=== PATIENT | female | born 1975 | race Caucasian/White ===

== ENCOUNTER → 2021-09-07 12:26 | Outpatient (CLI) | payer OTHER, SELFPAY ==
--- NOTE | ~2021-09-07 | MM_ITS ---
EXAMINATION: MM screening [facility] BI w blas HISTORY: Screening mammogram TECHNIQUE: Craniocaudal and mediolateral oblique 3-D tomosynthesis images were obtained and synthetic 2-D images were generated. CAD analysis was submitted and interpreted. COMPARISON: 07/08/2018, 06/19/2018 BREAST PARENCHYMAL COMPOSITION: There are scattered areas of fibroglandular density. FINDINGS: There is no evidence of suspicious mass, calcification, or architectural distortion to sugg est malignancy in either breast. There has been no suspicious interval change. IMPRESSION: 1. No mammographic evidence of malignancy. 2. Recommend routine screening mammography in one year. BI-RADS Category 1: Negative Reviewed, dictated and finalized at location A. Y MEDIA OPERATOR
== END ==
PROVIDERS: PCP Nurse Practitioner Adult Health; Visit Provider Nurse Practitioner Adult Health
DX: Z12.31 Encounter for screening mammogram for malignant neoplasm of breast (principal)
CPT/HCPCS: 77063; 77067

== ENCOUNTER → 2022-09-11 10:05 | Outpatient (CLI) | payer OTHER, SELFPAY ==
--- NOTE | ~2022-09-11 | MM_ITS ---
EXAMINATION: MM screening [facility] BI w blas HISTORY: Screening mammogram TECHNIQUE: Craniocaudal and mediolateral oblique 3-D tomosynthesis images were obtained and synthetic 2-D images were generated. CAD analysis was submitted and interpreted. COMPARISON: September 07, 2021 bilateral screening mammogram 07/08/2018 diagnostic right mammogram 06/19/2018 bilateral screening mammogram BREAST PARENCHYMAL COMPOSITION: There are scattered areas of fibroglandular density. FINDINGS: Stable mild fibroglandular asymmetry since 06/19/2018. There is no evidence of suspicious m ass, calcification, or architectural distortion to suggest malignancy in either breast. There has bee n no suspicious interval change. IMPRESSION: 1. No mammographic evidence of malignancy. 2. Recommend routine screening mammography in one year. BI-RADS Category 1: Negative Reviewed, dictated and finalized at location A. 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
== END ==
PROVIDERS: PCP Nurse Practitioner Adult Health; Visit Provider Nurse Practitioner Adult Health
DX: Z12.31 Encounter for screening mammogram for malignant neoplasm of breast (principal)
CPT/HCPCS: 77063; 77067

== ENCOUNTER → 2023-09-17 10:03 | Outpatient (CLI) | payer OTHER, SELFPAY ==
--- NOTE | ~2023-09-17 | MM_ITS ---
EXAMINATION: MM screening [facility] BI w blas HISTORY: Screening TECHNIQUE: Craniocaudal and mediolateral oblique 3-D tomosynthesis images were obtained and synthetic 2-D images were generated. CAD analysis was submitted and interpreted. COMPARISON: No prior mammogram is available for comparison at this institution. BREAST PARENCHYMAL COMPOSITION: Not dense: There are scattered areas of fibroglandular density. FINDINGS: There are scattered bilateral breast asymmetries, more so on the right. Left breast asymmet diana are centered in the upper outer quadrant of the left breast. There are no suspicious calcificati ons. IMPRESSION: 1. Bilateral breast asymmetries. 2. Additional mammographic views and possible breast ultrasound are recommended. BI-RADS Category 0: Incomplete: Needs additional imaging evaluation. Reviewed, dictated and finalized at location A. ING CLEANER IMPRESSION: 1. Bilateral breast asymmetries. 2. Additional mammographic views and possible breast ultrasound are recommended . BI-RADS Category 0: Incomplete: Needs additional imaging evaluation.
== END ==
PROVIDERS: PCP Family Medicine; Visit Provider Family Medicine
DX: Z12.31 Encounter for screening mammogram for malignant neoplasm of breast (principal); R92.8 Other abnormal and inconclusive findings on diagnostic imaging of breast
CPT/HCPCS: 77063; 77067

== ENCOUNTER 2023-10-12 07:49 | Outpatient (CLI) | payer OTHER, SELFPAY ==
--- NOTE | ~2023-10-12 | US_ITS ---
US breast BI complete DATE: 10/12/2023 11:04 INDICATION: Bilateral mammographic asymmetries reported on September 17, 2023 screening mammogram TECHNIQUE: Complete bilateral breast ultrasound examination including all 4 quadrants and subareolar areas COMPARISON: September 17, 2023 bilateral screening mammogram October 12, 2023 diagnostic right mammogram FINDINGS: No suspicious mass or shadowing of either breast is detected. Right breast: 1:00 3 cm from nipple: 5 mm simple cyst 10:00 5 cm from nipple: 2 x 3.7 mm probable minimally septated cyst 10:00 5 cm from nipple: 3 mm circumscribed probable septated cyst 11:00 5 cm from nipple: 2.7 x 4.7 mm simple cyst Left breast: 3:00 8 cm from nipple: Approximately 4 x 9 mm probable intramammary lymph node IMPRESSION: BI-RADS Category 2: Benign Recommendation: Routine annual mammographic screening Reviewed, dictated and finalized at Location A. Reviewed, dictated and finalized at location B.
--- NOTE | ~2023-10-12 | MM_ITS ---
Patient name: Jovana Willis Date of : 1975 DIAGNOSTIC BREAST PJ - SENDY DATE: 10/13/2023 INDICATION: Bilateral breast mammographic asymmetries reported on September 17, 2023 screening mammogr am TECHNIQUE: Bilateral ML 3-D Tomosynthesis images with degeneration of 2-D images. Bilateral spot 3-D Tomosynthesis images with degeneration 2-D images. CAD was submitted and interpreted. COMPARISON: September 17, 2023 bilateral screening mammogram October 12, 2023 bilateral breast ultrasound examination FINDINGS: Bilateral mammographic asymmetry is again noted. Approximately 4.6 mm circumscribed mass is noted anteriorly in the upper inner quadrant of the right breast (spot craniocaudal Tomosynthesis image 45/62). No suspicious mass or architectural distortion, microcalcifications, skin thickening or retraction is detected. IMPRESSION: BI-RADS Category 0: Incomplete; need additional imaging evaluation Recommendation: Bilateral complete breast ultrasound examination Reviewed, dictated and finalized at Location A. Reviewed, dictated and finalized at location A.
== END 2023-10-12 07:50 ==
LOC: MICIMG 07:50
PROVIDERS: PCP Family Medicine; Visit Provider Physician Assistant
DX: R92.8 Other abnormal and inconclusive findings on diagnostic imaging of breast (principal)
CPT/HCPCS: 76641; 77062; 77066; G0279

== ENCOUNTER 2023-12-04 07:17 | Outpatient (CLI) | payer OTHER, SELFPAY ==
--- NOTE | ~2023-12-04 | XR_ITS ---
Left Knee Technique: AP, lateral, and sunrise views were obtained. Clinical History: Internal derangement Findings: No fracture or dislocation is seen. Osseous alignment is anatomic. Joint spaces are preserv ed without degenerative or erosive change. Soft tissues are unremarkable. No joint effusion is seen. Impression: Unremarkable left knee radiographs. Reviewed, dictated and finalized at location . Impression: Unremarkable left knee radiographs.
== END 2023-12-04 07:18 ==
PROVIDERS: PCP Family Medicine; Visit Provider Physician Assistant
DX: M23.92 Unspecified internal derangement of left knee (principal)
CPT/HCPCS: 73562

== ENCOUNTER 2024-09-19 07:02 | Outpatient (CLI) | payer OTHER, SELFPAY ==
--- NOTE | ~2024-09-19 | MM_ITS ---
EXAMINATION: MM screening [facility] BI w blas HISTORY: Screening TECHNIQUE: Craniocaudal and mediolateral oblique 3-D tomosynthesis images were obtained and synthetic 2-D images were generated. CAD analysis was submitted and interpreted. COMPARISON: Comparison to multiple prior studies sequentially, with oldest reviewed study dated 05/31. BREAST PARENCHYMAL COMPOSITION: Not dense: There are scattered areas of fibroglandular density. FINDINGS: Bilateral breast asymmetries are stable. Right breast mass in the upper inner quadrant of t he right breast is unchanged, previously characterized as a cyst. IMPRESSION: 1. No mammographic evidence of malignancy. 2. Recommend routine screening mammography in one year. BI-RADS Category 2: Benign finding(s). Reviewed, dictated and finalized at location B. TER OPERATOR
== END 2024-09-19 07:03 | disposition home or self-care (01) ==
LOC: MICIMG 07:04
PROVIDERS: PCP Student in an Organized Health Care Education/Training Program; Visit Provider Nurse Practitioner Family
DX: Z12.31 Encounter for screening mammogram for malignant neoplasm of breast (principal)
CPT/HCPCS: 77063; 77067

== ENCOUNTER 2024-12-12 11:58 | Outpatient (CLI) | payer OTHER, SELFPAY ==
--- NOTE | ~2024-12-12 | US_ITS ---
US abdomen limited INDICATION: Abnormal laboratory studies. PROCEDURE: Realtime right upper abdominal ultrasound. COMPARISON: No prior studies for comparison. FINDINGS: The pancreas is normal without focal mass or pancreatic ductal dilation. Liver echotexture is increased, consistent with fatty infiltration. There is a focal hyperechoic mass near the portal vein measuring 3.5 cm, most likely benign hemangioma. There is normal directional flow in the portal vein. The gallbladder is normal without stones, gallbladder wall thickening or pericholecystic fluid. Comm on bile duct measures 6 mm. No sonographic Krishna's sign. IMPRESSION: 1: Fatty infiltration of the liver. 2: Focal hyperechoic 3.5 cm liver mass near the portal vein. In the absence of known malignancy this is likely benign hemangioma. Reviewed, dictated and finalized at location A.
== END 2024-12-12 11:59 | disposition home or self-care (01) ==
LOC: GOSHIMG 11:59
PROVIDERS: PCP Family Medicine; Visit Provider Student in an Organized Health Care Education/Training Program
DX: K76.0 Fatty (change of) liver, not elsewhere classified (principal); R16.0 Hepatomegaly, not elsewhere classified; R74.8 Abnormal levels of other serum enzymes
CPT/HCPCS: 76705

== ENCOUNTER 2025-03-29 10:02 | Emergency (ER) | payer OTHER, SELFPAY ==
[2025-03-29 10:08] VITALS: BP 144/90; PULSE 81; RESP 17; TEMP 36.9; O2SAT 100
--- NOTE | 2025-03-29 12:02 | ED.SKABFB ---
HPI - Skin/Abscess/Foreign Bdy General Chief complaint: Skin/Abscess/Foreign Body Stated complaint: shingles Time Seen by Provider: 03/29/25 10:57 History of Present Illness HPI narrative: Patient is a 49-year-old female who is here to be evaluated for shingles to her left face. Seen by her PCPs office and prescribed valacyclovir 3 days ago. She has been compliant with medication. Her left upper eyelid is swollen today than she was told to be vigilant about any eye involvement. She was unable to see her mechatronics engineer 2 days ago as they did not have any openings. She has no photophobia or significant discharge from the eye. No pain in the eye. No tearing. Related Data Home Medications ?Medication ?Instructions ?Recorded ?Confirmed ?Last Taken ?Type cetirizine 10 mg capsule (Zyrtec) 10 mg PO DAILY PRN 02/02/23 03/02/25 Unknown History multivitamin 1 tablet PO DAILY 02/02/23 03/27/25 Unknown History Allergies Allergy/AdvReac Type Severity Reaction Status Date / Time No Known Allergies Allergy Verified 03/29/25 11:06 Review of Systems Constitutional: Constitutional: Reports no additional constitutional complaints Eyes: Eyes: Reports no additional eye complaints ENT: Reports system reviewed and no additional complaints, except as documented Integumentary/Breasts: Skin/Breast: Reports system reviewed and no additional complaints, except as docu PMFSH Past Medical History Medical History Morbid obesity with BMI of 40.0-44.9, adult Tobacco user Meniscal injury Hyperlipidemia Compensated hypothyroidism Surgical History Surgical History [place] teeth removed H/O arthroscopic knee surgery Family History Family History Father Diabetes mellitus Hypertension Heart disease Mother Thyroid disease Sibling Thyroid disease Grandparent Breast cancer Diabetes mellitus Heart disease Thyroid disease Cerebrovascular accident Hypertension Grandparent Diabetes mellitus Heart disease Hypertension Social History Social History Social History: Single Smoking packs per day: 1 Smoking cigarettes per day: 20.0 Years smoked: 20 Smoking pack-years: 20.00 Smoking status: Former smoker Tobacco type: e-cigarettes/vaping Smoking end date: 06/29/23 Alcohol intake: current Drinks per week: 7 Substance use: never Substance use type: does not use Do You Feel Safe in your Home?: Yes Lack of Transportation: No Lack of Food: Never True Current Housing: I Have Housing Concerned About Future Housing: No Difficulty Paying Gas/Electric Bills: No Difficulty Paying for Meds: No Currently Unemployed: No Education: Master's Degree or Higher Difficulty w/ Childcare or Family Care: No Living arrangements: with family Occupation/Education: occupation 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 HEAD: Normocephalic, atraumatic. EYES: PERRL and EOMI. The left eye evaluated with magnification and fluorescin staining. No abrasion/colitis/dendritic lesion. Mild edema to the left upper lid. ENT: Mucous membranes moist. EXTREMITIES: Normal range of motion. No edema. SKIN: Warm, dry, no rash. Shingles like rash along the left forehead and upper lid without weeping for significant ulcerations outside of the left hairline. NEURO: Alert and oriented x3. PSYCH: Normal mood and affect. Course Course Emergency Course: Patient given reassurance and discussed exam findings. Discussed signs and symptoms requiring need for follow-up in ER, likely some [facility] or [facility] has a have Ophthalmology on-call over the weekend. No evidence of ocular involvement at this time. Vital Signs Vital signs: Vital Signs Temperature 98.4 F 03/29/25 10:08 Pulse Rate 81 03/29/25 10:08 Respiratory Rate 17 03/29/25 10:08 Blood Pressure 144/90 H 03/29/25 10:08 Pulse Oximetry 100 03/29/25 10:08 Oxygen Delivery Room Air 03/29/25 10:08 Temperature 98.4 F 03/29/25 10:08 Pulse Rate 81 03/29/25 10:08 Respiratory Rate 17 03/29/25 10:08 Blood Pressure 144/90 H 03/29/25 10:08 Pulse Oximetry 100 03/29/25 10:08 Oxygen Delivery Room Air 03/29/25 10:08 Discharge Plan Discharge Clinical Impression: Herpes zoster Patient Disposition: Home Condition: Stable Instructions: Shingles (ED) Additional Instructions: Return to the ER if you have eye pain, you have sensitivity to light, you have thick drainage from the eye, you have additional concerns. Continue your antiviral medication at home. Patient Language: Mohawk Prescriptions: No Action Zyrtec 10 mg capsule 10 mg PO DAILY PRN multivitamin Tablet 1 tablet PO DAILY furosemide 20 mg tablet 20 mg PO QAM Qty: 30 0RF phentermine 37.5 mg tablet 37.5 mg PO DAILY Qty: 30 0RF Rx Instructions: must administer 30 minutes before or 1-2 hours after breakfast valacyclovir 500 mg tablet 1,000 mg PO TID Qty: 42 0RF levothyroxine 112 mcg tablet See Rx Instructions .ROUTE .COMPLEX Qty: 90 1RF Dose Instruction: TAKE 1 TABLET BY MOUTH DAILY Rx Instructions: TAKE 1 TABLET BY MOUTH DAILY atorvastatin 20 mg tablet See Rx Instructions .ROUTE .COMPLEX Qty: 90 1RF Dose Instruction: TAKE 1 TABLET BY MOUTH DAILY Rx Instructions: TAKE 1 TABLET BY MOUTH DAILY Follow-up/Referrals: Gilberto Piper MD [Primary Care Provider, Family Practice] - 1 Week
== END 2025-03-29 12:12 | disposition home or self-care (01) ==
PROVIDERS: Emergency Provider Emergency Medicine; PCP Family Medicine
DX: B02.9 Zoster without complications (principal); E03.9 Hypothyroidism, unspecified; E78.5 Hyperlipidemia, unspecified; E66.01 Morbid (severe) obesity due to excess calories; Z68.38 Body mass index [BMI] 38.0-38.9, adult
CPT/HCPCS: 99283